=== PATIENT | male | born 1990 | race Two or more races ===

== ENCOUNTER 2024-06-16 14:33 | Emergency (ER) | payer BC ==
[~2024-06-16] VITALS: Ht 195.6 cm; Wt 97.5 kg
[2024-06-16] MEDS ORDERED: ZYRTEC10 MG PO (17:23)
[2024-06-16] MEDS ORDERED: DEXAMETHASONE SODIUM PHOSPHATE 4 MG/ML VIAL IM ONE (17:30)
[2024-06-16] MEDS ORDERED: DIPHENHYDRAMINE HCL 50 MG/ML VIAL 1ML IM ONE (17:30)
[2024-06-16] MEDS ORDERED: DEXAMETHASONE SODIUM PHOSPHATE 4 MG/ML VIAL ONE (17:34)
[2024-06-16] MEDS ORDERED: DIPHENHYDRAMINE HCL 50 MG/ML VIAL 1ML ONE (17:34)
== END 2024-06-16 18:08 | disposition home or self-care (01) ==
LOC: ER 14:36
DX: T78.49XA Other allergy, initial encounter (principal); X58.XXXA Exposure to other specified factors, initial encounter; Z88.0 Allergy status to penicillin